=== PATIENT | female | born 1985 | race Caucasian/White ===

== ENCOUNTER 2016-02-20 05:41 | Inpatient (IN) | payer OTHER, BC ==
[~2016-02-20] VITALS: Ht 152.4 cm; Wt 67.0 kg
[~2016-02-20 05:41] MED LIST: AURYXIA PO; CALCIUM ACETAT667 M2 PO; COREG25 M1 PO; LISINOPRIL10 MG PO; LISINOPRIL5 MG PO; LO-DOSE ASPIRIN81 M1 PO; NEPHROCAPS SOFTG1 MG PO; PRAVASTATIN SOD40 MG PO
[2016-02-20 06:21] LABS: HEMATOCRIT 26.8 % (36.0-46.0)
[2016-02-20 06:24] VITALS: BP 163/90
[2016-02-20 06:59] LABS: ANION GAP 17 MEQ/L (2-14); CHLORIDE 89 MEQ/L (99-109); GFR ESTIMATE (CALCULATED) 6 mL/min/; GLUCOSE 81 mg/dL (70-99); POTASSIUM 4.8 MEQ/L (3.7-5.4); SAMPLE HEMOLYSIS CHECK 0; SAMPLE ICTERIC CHECK 0; SAMPLE LIPEMIA CHECK 0; SODIUM 137 MEQ/L (136-147); UREA NITROGEN (BUN) 42 mg/dL (9-23)
[2016-02-20 07:38] LABS: METH RESISTANT S AUREUS PCR NEGATIVE (NEGATIVE)
[2016-02-20 07:40] LABS: PROBE CHECK PASS; SPECIMEN PROCESSING CONTROL PASS
[2016-02-20 08:40] LABS: INTACT PARATHYROID HORMONE 2164 pg/mL (10-69)
[2016-02-20] MEDS ORDERED: NORCO 5/3251 TABLET PO (10:33)
[2016-02-20 16:34] VITALS: BP 130/72
[2016-02-20 20:13] VITALS: BP 128/63
[2016-02-21 07:37] VITALS: BP 121/59
[2016-02-21 08:04] LABS: INTACT PARATHYROID HORMONE 1515 pg/mL (10-69)
[2016-02-21 12:03] VITALS: BP 107/58
[2016-02-21 16:03] VITALS: BP 140/68
[2016-02-21 19:58] VITALS: BP 146/70
[2016-02-21 23:53] VITALS: BP 116/61
[2016-02-22 04:04] VITALS: BP 122/59
[2016-02-22 04:15] VITALS: BP 132/69
[2016-02-22 11:20] VITALS: BP 142/75
[2016-02-22 14:16] LABS: INTACT PARATHYROID HORMONE 1522 pg/mL (10-69)
[2016-02-22 15:20] VITALS: BP 134/71
== END 2016-02-22 18:48 | disposition home or self-care (01) | DRG 939 ==
LOC: SDC 05:41 → 2SOUTH 10:33 → SDC 13:25 → 2EAST 16:31
PROVIDERS: Surgery; Thoracic Surgery (Cardiothoracic Vascular Surgery)
DX: G89.18 Other acute postprocedural pain (principal); N25.81 Secondary hyperparathyroidism of renal origin; I13.2 Hypertensive heart and chronic kidney disease with heart failure and with stage 5 chronic kidney disease, or end stage renal disease; I50.9 Heart failure, unspecified; N18.6 End stage renal disease; T86.12 Kidney transplant failure; Z91.040 Latex allergy status; Z88.1 Allergy status to other antibiotic agents; Z88.5 Allergy status to narcotic agent; Z87.891 Personal history of nicotine dependence; Z86.73 Personal history of transient ischemic attack (TIA), and cerebral infarction without residual deficits; Z99.2 Dependence on renal dialysis
CPT/HCPCS: 80048; 82310; 83970; 83970 91; 85014; 85018; 87641; 88305; 93005; G0378; J0131; J0690; J1170; J1200; J2250; J2405; J2710; J2765; J3010; J7040

== ENCOUNTER 2016-02-26 15:42 | Emergency (ER) | payer OTHER, BC ==
[~2016-02-26] VITALS: Ht 152.4 cm; Wt 68.4 kg
[~2016-02-26 15:42] MED LIST changes: +NORCO 5/3251 TABLET PO
[2016-02-26 16:39] LABS: HEMATOCRIT 31.1 % (36.0-46.0); MCH 25.4 PG (29.0-34.0); MCHC 29.3 G/DL (30.0-36.0); MCV 86.9 FL (83-99); MEAN PLAT.VOLUME 8.9 uM^3 (9.5-12.4); PLATELET COUNT 346 K/uL (156-360); RBC DIS.WIDTH-CV 18.2 % (11.8-14.6); RBC DIS.WIDTH-SD 56.4 % (39-53); RED BLOOD COUNT 3.58 M/uL (3.80-5.20); WHITE BLOOD COUNT 5.2 K/uL (4.1-10.2)
[2016-02-26 16:49] LABS: CHLORIDE 93 mEq/L (99-109); POTASSIUM 5.4 mEq/L (3.7-5.4); SODIUM 141 mEq/L (136-147)
[2016-02-26 16:51] LABS: GLUCOSE 119 mg/dL (70-99)
[2016-02-26 16:52] LABS: ANION GAP 14 MEQ/L (2-14)
[2016-02-26 16:53] LABS: TOTAL BILIRUBIN 0.5 mg/dL (0.0-1.0)
[2016-02-26 16:54] LABS: ALKALINE PHOSPHATASE 276 IU/L (3-129)
[2016-02-26 16:55] LABS: GFR ESTIMATE (CALCULATED) 6 mL/min/
[2016-02-26 16:56] LABS: UREA NITROGEN (BUN) 31 mg/dL (9-23)
[2016-02-26] MEDS ORDERED: PERCOCET 5/31 TABLET PO (19:17)
[2016-02-26 21:10] VITALS: BP 164/98
== END 2016-02-26 21:11 | disposition home or self-care (01) ==
LOC: EME 15:42
PROVIDERS: Nurse Practitioner Family
DX: M54.2 Cervicalgia (principal); G89.18 Other acute postprocedural pain; E21.3 Hyperparathyroidism, unspecified; I10 Essential (primary) hypertension; K21.9 Gastro-esophageal reflux disease without esophagitis; Z86.73 Personal history of transient ischemic attack (TIA), and cerebral infarction without residual deficits; Z87.891 Personal history of nicotine dependence
CPT/HCPCS: 70360; 71020; 73030; 80048; 80053; 85027; 99281; 99285; J1170; J2405

== ENCOUNTER 2016-10-13 10:11 | Day surgery (SDC) | payer OTHER, BC ==
[~2016-10-13] VITALS: Ht 152.4 cm; Wt 64.5 kg
[~2016-10-13 10:11] MED LIST changes: +PERCOCET 5/31 TABLET PO
[2016-10-13] MEDS ORDERED: IMODIUM A-D2 M2 PO (10:37)
[2016-10-13 12:17] LABS: METH RESISTANT S AUREUS PCR NEGATIVE (NEGATIVE)
[2016-10-13 12:21] LABS: PROBE CHECK PASS; SPECIMEN PROCESSING CONTROL PASS
== END 2016-10-13 12:25 | disposition home or self-care (01) ==
LOC: CATH 10:11
PROVIDERS: Surgery
PROC: 057Y3ZZ Dilation of Upper Vein, Percutaneous Approach (ICD-10-PCS; principal; 2016-10-13)
DX: T82.858A Stenosis of other vascular prosthetic devices, implants and grafts, initial encounter (principal); N18.6 End stage renal disease; Z99.2 Dependence on renal dialysis; Z82.49 Family history of ischemic heart disease and other diseases of the circulatory system; Z83.3 Family history of diabetes mellitus
CPT/HCPCS: 87641; C1725; C1769; C1894; J1200; J1644; J2250; J2765; J2930; J3010

== ENCOUNTER 2016-11-13 06:40 | Day surgery (SDC) | payer OTHER, BC ==
[~2016-11-13] VITALS: Ht 152.4 cm; Wt 64.9 kg
[~2016-11-13 06:40] MED LIST changes: +IMODIUM A-D2 M2 PO; +SENSIPAR30 MG PO
[2016-11-13 06:55] VITALS: BP 126/66
[2016-11-13 07:30] VITALS: BP 126/66
[2016-11-13 07:38] LABS: HEMATOCRIT 24.1 % (36.0-46.0); MCV 81.7 FL (83-99)
[2016-11-13 08:02] LABS: ANION GAP 16 MEQ/L (2-14); CHLORIDE 89 MEQ/L (99-109); GFR ESTIMATE (CALCULATED) 12 mL/min/; GLUCOSE 91 mg/dL (70-99); POTASSIUM 5.2 MEQ/L (3.7-5.4); SAMPLE HEMOLYSIS CHECK 0; SAMPLE ICTERIC CHECK 0; SAMPLE LIPEMIA CHECK 0; SODIUM 137 MEQ/L (136-147); UREA NITROGEN (BUN) 22 mg/dL (9-23)
[2016-11-13 08:43] LABS: QUANTITATIVE HCG 25.5 MIU/ML
== END 2016-11-13 16:30 | disposition home or self-care (01) ==
LOC: SDC 06:40 → 2EASTP 06:41 → SDC 14:36 → 2EASTP 16:30
PROVIDERS: Anesthesiology
DX: T82.898A Other specified complication of vascular prosthetic devices, implants and grafts, initial encounter (principal); I77.1 Stricture of artery; I99.8 Other disorder of circulatory system; N18.6 End stage renal disease; Z99.2 Dependence on renal dialysis; Z91.013 Allergy to seafood; Z91.09 Other allergy status, other than to drugs and biological substances; Z91.040 Latex allergy status; Z88.1 Allergy status to other antibiotic agents; Z88.5 Allergy status to narcotic agent; Y83.2 Surgical operation with anastomosis, bypass or graft as the cause of abnormal reaction of the patient, or of later complication, without mention of misadventure at the time of the procedure
CPT/HCPCS: 80048; 84702; 85014; 85018; 93005; C1750; G0378; J0690; J1170; J1644; J2250; J3010; J7040

== ENCOUNTER 2017-03-16 07:50 | Day surgery (SDC) | payer OTHER, BC ==
[~2017-03-16] VITALS: Ht 152.4 cm; Wt 68.9 kg
[~2017-03-16 07:50] MED LIST changes: +ROCALTROL0.5 MCG PO; +TUMS ULTRA ST1177 MG PO
[2017-03-16] MEDS ORDERED: CARDIZEM30 MG PO (08:38)
[2017-03-16] MEDS ORDERED: CALCITRIOL0.5 MCG PO (08:39)
[2017-03-16 08:49] LABS: HEMATOCRIT 31.7 % (36.0-46.0); HEMOGLOBIN 9.5 G/DL (11.9-15.5); MCH 26.5 PG (29.0-34.0); MCV 88.3 FL (83-99); PLATELET COUNT 191 K/uL (156-360); RBC DIS.WIDTH-CV 17.5 % (11.8-14.6); RBC DIS.WIDTH-SD 56.1 % (39-53); RED BLOOD COUNT 3.59 M/uL (3.80-5.20); WHITE BLOOD COUNT 6.5 K/uL (4.1-10.2)
[2017-03-16 09:00] VITALS: BP 150/70
[2017-03-16 09:40] LABS: CHLORIDE 97 MEQ/L (99-109); GFR ESTIMATE (CALCULATED) 6 mL/min/; GLUCOSE 80 mg/dL (70-99); SODIUM 136 MEQ/L (136-147); UREA NITROGEN (BUN) 62 mg/dL (9-23)
[2017-03-16 09:47] LABS: POTASSIUM 6.4 MEQ/L (3.7-5.4)
[2017-03-16 12:48] VITALS: BP 117/57
[2017-03-16 13:30] LABS: CHLORIDE 101 MEQ/L (99-109); CREATININE 7.6 MG/DL (0.6-1.3); GFR ESTIMATE (CALCULATED) 7 mL/min/; GLUCOSE 46 mg/dL (70-99); POTASSIUM 4.7 MEQ/L (3.7-5.4); SODIUM 139 MEQ/L (136-147); UREA NITROGEN (BUN) 62 mg/dL (9-23)
[2017-03-16 13:31] VITALS: BP 120/70
== END 2017-03-16 13:46 | disposition home or self-care (01) ==
LOC: SDC 07:50
PROVIDERS: Surgery
DX: I12.0 Hypertensive chronic kidney disease with stage 5 chronic kidney disease or end stage renal disease (principal); N18.6 End stage renal disease; Z99.2 Dependence on renal dialysis; Z87.891 Personal history of nicotine dependence; Z86.73 Personal history of transient ischemic attack (TIA), and cerebral infarction without residual deficits; R94.31 Abnormal electrocardiogram [ECG] [EKG]
CPT/HCPCS: 80048; 80048 91; 82948; 85027; 87641; C1768; J0690; J1170; J1644; J2250; J2405; J2720; J3010

== ENCOUNTER 2017-03-23 13:11 | Day surgery (SDC) | payer OTHER, BC ==
[~2017-03-23 13:11] MED LIST changes: +CALCITRIOL0.5 MCG PO; +CARDIZEM30 MG PO
[2017-03-25] MEDS ORDERED: NORCO 5/3251 TABLET PO (14:32)
== END 2017-03-23 17:16 | disposition home or self-care (01) ==
LOC: CATH 13:11
DX: T82.41XA Breakdown (mechanical) of vascular dialysis catheter, initial encounter (principal); N18.6 End stage renal disease; Z99.2 Dependence on renal dialysis
CPT/HCPCS: 87641; C1725; C1769; C1894; J0690; J1200; J1644; J2250; J2765; J2930; J3010

== ENCOUNTER 2017-03-26 06:55 | Day surgery (SDC) | payer OTHER, BC ==
[~2017-03-26] VITALS: Ht 165.1 cm; Wt 70.8 kg
[2017-03-26 07:18] VITALS: BP 118/59
[2017-03-26 07:54] LABS: BASOPHIL (%) 0.8 % (0-1); BASOPHIL COUNT 0.1 K/uL (0-0.1); EOSINOPHIL (%) 1.8 % (0-5); EOSINOPHIL COUNT 0.1 K/uL (0-0.3); HEMATOCRIT 33.2 % (36.0-46.0); HEMOGLOBIN 9.8 G/DL (11.9-15.5); IMMATURE GRANULOCYTE (%) 0.3 % (0.0-0.7); LYMPHOCYTE (%) 24.8 % (15-42); LYMPHOCYTE COUNT 1.9 K/uL (1.0-2.8); MCH 26.7 PG (29.0-34.0); MCHC 29.5 G/DL (30.0-36.0); MCV 90.5 FL (83-99); MONOCYTE (%) 8.7 % (3-12); MONOCYTE COUNT 0.7 K/uL (0-0.8); NEUTROPHIL (%) 63.6 % (45-76); NEUTROPHIL COUNT 4.8 K/uL (1.8-6.4); RBC DIS.WIDTH-CV 17.4 % (11.8-14.6); RBC DIS.WIDTH-SD 57.6 % (39-53); RED BLOOD COUNT 3.67 M/uL (3.80-5.20); WHITE BLOOD COUNT 7.6 K/uL (4.1-10.2)
[2017-03-26 07:57] LABS: PLATELET COUNT 276 K/uL (156-360)
[2017-03-26 08:26] LABS: CHLORIDE 97 MEQ/L (99-109); CREATININE 5.5 MG/DL (0.6-1.3); GFR ESTIMATE (CALCULATED) 10 mL/min/; GLUCOSE 82 mg/dL (70-99); POTASSIUM 5.9 MEQ/L (3.7-5.4); SODIUM 138 MEQ/L (136-147); UREA NITROGEN (BUN) 31 mg/dL (9-23)
[2017-03-26 12:47] VITALS: BP 109/53
== END 2017-03-26 15:25 | disposition home or self-care (01) ==
LOC: SDC 06:55 → 2EAST 06:56 → SDC 09:32 → 2EAST 15:25
PROVIDERS: Surgery
PROC: 03LY0ZZ Occlusion of Upper Artery, Open Approach (ICD-10-PCS; principal; 2017-03-26)
DX: T82.898A Other specified complication of vascular prosthetic devices, implants and grafts, initial encounter (principal); I99.8 Other disorder of circulatory system; N18.6 End stage renal disease; Z99.2 Dependence on renal dialysis; Z83.3 Family history of diabetes mellitus; Z82.49 Family history of ischemic heart disease and other diseases of the circulatory system; Z91.09 Other allergy status, other than to drugs and biological substances; Z91.013 Allergy to seafood; Z91.040 Latex allergy status; Z88.1 Allergy status to other antibiotic agents; Z88.5 Allergy status to narcotic agent; Y83.2 Surgical operation with anastomosis, bypass or graft as the cause of abnormal reaction of the patient, or of later complication, without mention of misadventure at the time of the procedure
CPT/HCPCS: 80048; 85025; 93005; G0378; J0690; J1170; J1644; J2250; J2405; J2704; J2765; J3010; P9045